=== PATIENT | female | born 1990 | race Caucasian/White ===

== ENCOUNTER 2018-03-21 19:25 | Emergency (ER) | payer MEDICAID ==
[~2018-03-21] VITALS: Ht 157.5 cm; Wt 80.0 kg
[~2018-03-21 19:25] MED LIST: OVRAL PO
[2018-03-21 19:27] VITALS: BP 158/81
[2018-03-21] MEDS ORDERED: HYDROcodone/acetaminophen 10/325mg tab PO ONE (19:45)
[2018-03-21] MEDS ORDERED: HYDR-3965 PO (19:51)
[2018-03-21] MEDS ORDERED: TETanus/Pertussis (Acell)/Diphther VAC/PF (Tdap-Adult) 0.5ml syringe IM ONE (19:55)
== END 2018-03-21 20:50 | disposition home or self-care (01) ==
LOC: ER 19:25
DX: T22.241A Burn of second degree of right axilla, initial encounter (principal); T22.211A Burn of second degree of right forearm, initial encounter; T24.211A Burn of second degree of right thigh, initial encounter; F12.90 Cannabis use, unspecified, uncomplicated; Z88.1 Allergy status to other antibiotic agents; X12.XXXA Contact with other hot fluids, initial encounter; Y93.G3 Activity, cooking and baking; Y92.090 Kitchen in other non-institutional residence as the place of occurrence of the external cause; Y99.9 Unspecified external cause status
CPT/HCPCS: 16020; 90471; 90715; 99284; A6223; A6255; A6446; A6449